=== PATIENT | male | born 1985 | race Caucasian/White ===

== ENCOUNTER 2016-12-23 22:53 | Emergency (ER) | payer MEDICAID ==
[2016-12-23] MEDS ORDERED: oxyCOD/ACETAMIN 5 MG/325 MG TABLET PO STA (23:08)
[2016-12-23] MEDS ORDERED: oxyCOD/ACETAMIN 5 MG/325 MG TABLET PO ONE (23:13)
== END 2016-12-24 00:33 | disposition home or self-care (01) ==
DX: R59.0 Localized enlarged lymph nodes (principal); F17.200 Nicotine dependence, unspecified, uncomplicated
CPT/HCPCS: 81003; 87491; 87591; 99283; A9270

== ENCOUNTER 2023-05-18 18:39 | Emergency (ER) | payer SELFPAY ==
[2023-05-18] MEDS ORDERED: SODIUM CHLORIDE 0.9% 1,000 ML IV STA (18:57)
[2023-05-18] MEDS ORDERED: HYDROmorphone 1 MG/ML CARPUJECT IVP STA (18:58)
[2023-05-18] MEDS ORDERED: ONDANSETRON 4 MG/2 ML VIAL IVP STA (18:58)
[2023-05-18 18:59] LABS: BILIRUBIN,URINE NEGATIVE (NEGATIVE); GLUCOSE, URINE (UA) NEGATIVE (NEGATIVE); KETONES,URINE (UA) NEGATIVE (NEGATIVE); LEUKOCYTE ESTERASE, URINE NEGATIVE (NEGATIVE); NITRITE,URINE NEGATIVE (NEGATIVE); OCCULT BLOOD,URINE NEGATIVE (NEGATIVE); PH,URINE 5.5 PH (5.0-7.5); PROTEIN,URINE NEGATIVE (NEGATIVE); UROBILINOGEN,URINE 0.2 (NORMAL) E.U./dL (NORMAL)
--- NOTE | 2023-05-18 19:02 | ED Physician Documentation ---
History of Present Illness - Stated complaint Stated Complaint: ABD PX - Chief complaint Chief Complaint: Abd Pain - Additonal information Additional information: 37-year-old male presents emergency department for evaluation of several weeks left-sided abdominal pain. Describes it as cramping and constant in nature nonradiating. Also feels that he may have a right inguinal hernia as he has a pressure and lump in the inguinal region. Denies any fevers. No melena hematochezia. No dysuria or urinary symptoms no pertinent past surgical history. Review of Systems Constitutional: reports: Reviewed and negative Ears: reports: Reviewed and negative Cardiac: reports: Reviewed and negative GI: reports: Abdominal Pain. denies: Nausea, Vomiting, Constipation : reports: Reviewed and negative Skin: reports: Reviewed and negative PD PAST MEDICAL HISTORY - Past Surgical History Past Surgical History: No - Present Medications Home Medications: Ambulatory Orders Medication Instructions Recorded Confirmed Lidocaine Patch 5% [Lidoderm Patch] 1 each TOP DAILY PRN #10 patch 08/19/16 predniSONE [Deltasone] 40 mg PO DAILY 5 Days tablet 08/19/16 - Allergies Allergies/Adverse Reactions: Allergies Allergy/AdvReac Type Severity Reaction Status Date / Time cefaclor [From Ceclor] Allergy Rash Verified 05/18/23 18:42 - Social History Does the pt smoke?: Yes Smoking Status: Current every day smoker Does the pt drink ETOH?: Yes Does the pt have substance abuse?: No - Immunizations Immunizations are current?: Yes - POLST Patient has POLST: No PD ED PE NORMAL - General General: Alert and oriented X 3, No acute distress, Well developed/nourished - Neck Neck: Supple, no meningeal sign, No adenopathy - Cardiac Cardiac: RRR, No murmur - Respiratory Respiratory: No respiratory distress, Clear bilaterally - Abdomen Abdomen: Normal bowel sounds, Soft. No: Non tender (Mild tenderness left flank. No CVA tenderness. No guarding or rebound.) - Male Male : Formula Weigher present (Unremarkable male exam with no inguinal hernia appreciated or induced.) - Back Back: No CVA TTP - Derm Derm: Warm and dry - Extremities Extremities: No deformity - Neuro Neuro: Alert and oriented X 3 Eye Opening: Spontaneous Motor: Obeys Commands Verbal: Oriented GCS Score: 15 Results - Vitals Vitals: Vital Signs - 24 hr 05/18/23 05/18/23 18:42 20:45 Temperature 36.5 C 37.3 C Heart Rate 80 67 Respiratory 16 16 Rate Blood Pressure 133/78 H 117/85 H O2 Saturation 98 97 Oxygen O2 Source Room air - Labs Labs: Laboratory Tests 05/18/23 05/18/23 05/18/23 18:51 19:15 19:15 WBC 14.4 H RBC 5.29 Hgb 17.1 Hct 50.8 MCV 96.0 H MCH 32.3 H MCHC 33.7 RDW 12.6 Plt Count 204 MPV 10.1 Neut # (Auto) 9.0 H Lymph # (Auto) 3.9 H [place] # (Auto) 1.2 H Eos # (Auto) 0.2 Baso # (Auto) 0.1 Absolute Nucleated RBC 0.00 Nucleated RBC % 0.0 Sodium 139 Potassium 3.8 Chloride 108 Carbon Dioxide 30 Anion Gap 1.0 L BUN 17 Creatinine 0.9 Estimated GFR (MDRD) 95 Glucose 90 Calcium 9.2 Total Bilirubin 0.3 AST 11 ALT 11 Alkaline Phosphatase 46 Total Protein 6.4 Albumin 4.0 Globulin 2.4 Albumin/Globulin Ratio 1.7 Lipase 31 Urine Color YELLOW Urine Clarity CLEAR Urine pH 5.5 Ur Specific Amity >=1.030 H Urine Protein NEGATIVE Urine Glucose (UA) NEGATIVE Urine Ketones NEGATIVE Urine Occult Blood NEGATIVE Urine Nitrite NEGATIVE Urine Bilirubin NEGATIVE Urine Urobilinogen 0.2 (NORMAL) Ur Leukocyte Esterase NEGATIVE Ur Microscopic Review NOT INDICATED Urine Culture Comments NOT INDICATED PD Medical Decision Making - ED course Complexity details: reviewed results, re-evaluated patient, d/w patient ED course: 37-year-old male presents emergency department for evaluation of several weeks left-sided flank pain. Described as cramping and sharp in nature. No fevers. No vomiting, melena or hematochezia. On presentation there was some mild to moderate tenderness elicited along the left flank. I had initially ordered some Dilaudid and Zofran in IV form but the patient declined that. Subsequently CBC, electrolytes and urinalysis was obtained. Per my interpretation mild leukocytosis with a white count of 14.4 thousand. Otherwise unremarkable CBC and electrolytes. Urinalysis shows no signs of infection. A CT was obtained for further evaluation of the abdominal pain and to rule out a surgical process such as an occult acute appendicitis, nephrolithiasis, ureterolithiasis bowel obstruction or diverticulitis. CT scan showed no acute duarte rgical findings though there was a note made of diverticulosis. At this time is not clear what the cause of the patient's abdominal pain is though he has remained well-appearing and hemodynamically stable. He declined pain medication today in the ER. He is discharged home with the advised to follow closely with his primary care provider. May benefit from referral for colonoscopy. The usual emergent return precautions for worsening symptoms was discussed. Departure - Departure Disposition: 01 Home, Self Care Clinical Impression: Left sided abdominal pain, Diverticulosis Condition: Stable Record reviewed to determine appropriate education?: Yes Instructions: ED Abdominal Pain Unkn Cause Male Comments: The labs today did not show any worrisome findings. The CT scan showed no findings to suggest gallbladder disease, appendicitis, bowel obstruction or kidney stones. There was no hernias seen. You do have diverticulosis. I do recommend he take Tylenol 500 mg with food 2-3 times a day or alternate with ibuprofen 600 mg also taken with food 2-3 times a day. Please reach out to her primary care doctor. Given that we do not have an obvious source for your left-sided abdominal pain it would be at this point be appropriate to consider getting his colonoscopy to make sure that there are no lesions or polyps within your colon that could be causing the symptoms. Return to the ER for worsening symptoms, fevers, uncontrolled vomiting, black or bloody stools. Forms: PCP List
[2023-05-18 19:16] LABS: CLARITY,URINE CLEAR (CLEAR)
[2023-05-18 19:27] LABS: BASOPHILS # (AUTO) 0.1 10^3/uL (0.0-0.1); BASOPHILS % (AUTO) 0.6 %; EOSINOPHILS # (AUTO) 0.2 10^3/uL (0.0-0.7); EOSINOPHILS % (AUTO) 1.6 %; HCT - HEMATOCRIT 50.8 % (42.0-52.0); HGB - HEMOGLOBIN 17.1 g/dL (14.0-18.0); LYMPHOCYTES # (AUTO) 3.9 10^3/uL (1.5-3.5); MEAN CORPUSCULAR HEMOGLOBIN 32.3 pg (27.0-31.0); MEAN CORPUSCULAR HGB CONC 33.7 g/dL (32.0-36.0); MEAN PLATELET VOLUME 10.1 fL (7.4-11.4); MONOCYTES # (AUTO) 1.2 10^3/uL (0.0-1.0); NEUTROPHILS % (AUTO) 62.4 %; PLT - PLATELET COUNT 204 10^3/uL (130-450); RED BLOOD COUNT 5.29 10^6/uL (4.70-6.10); RED CELL DISTRIBUTION WIDTH 12.6 % (12.0-15.0); WHITE BLOOD COUNT 14.4 x10^3/uL (4.8-10.8)
[2023-05-18 19:52] LABS: ALBUMIN/GLOBULIN RATIO 1.7 (1.0-2.2); BILIRUBIN,TOTAL 0.3 mg/dL (0.2-1.0); CALCIUM 9.2 mg/dL (8.5-10.3); CREATININE 0.9 mg/dL (0.6-1.3); POTASSIUM 3.8 mmol/L (3.5-4.5); TOTAL PROTEIN 6.4 g/dL (6.4-8.9)
--- NOTE | 2023-05-18 21:51 | CT Report ---
PROCEDURE: ABDOMEN/PELVIS W INDICATIONS: Left sided abd pain CONTRAST: 100mL Omni 300 TECHNIQUE: After the administration of intravenous contrast, 5 mm thick sections acquired from the diaphragms to the symphysis. 5 mm thick coronal and sagittal reformats were acquired. For radiation dose reducti on, the following was used: automated exposure control, adjustment of mA and/or kV according to diaz ent size. COMPARISON: CT abdomen pelvis 08/19/2016 FINDINGS: Image quality: Excellent. Lung bases: Unremarkable. Heart: Heart is normal in size. ABDOMEN: Liver: No mass lesion. Gallbladder: Within normal limits without calcified gallstones. Biliary ducts: No biliary ductal dilatation. Pancreas: Unremarkable. Spleen: Normal in size. Adrenal Glands: No adrenal nodules. Kidneys and Ureters: No hydronephrosis. Stomach and Bowel: Stomach, small bowel loops, and colon are normal in caliber and wall thickness. T he appendix is normal. There is colonic diverticulosis without acute diverticulitis. Peritoneum: No abnormal intraperitoneal fluid. No free air. Ventral Wall: No hernia. Abdominal Nodes: No retroperitoneal or mesenteric adenopathy by size criteria. Vessels: Aorta and inferior vena cava are normal in size. PELVIS: Pelvic Organs: Unremarkable. Bladder: Unremarkable. Pelvic Nodes: No enlarged lymph nodes. Miscellaneous: No inguinal hernias. Bones: Visualized osseous structures demonstrate no suspicious lesions. IMPRESSION: 1. No acute intra-abdominal abnormality. 2. Colonic diverticulosis without acute diverticulitis. Reviewed by: Edgar Porter MD on 05/18/2023 9:50 PM PDT Approved by: Edgar Porter MD on 05/18/2023 9:50 PM PDT Station ID: [id number]
[2023-05-18 22:19] VITALS: BP 137/68
[2023-05-19] MEDS ORDERED: iohexoL-300 100 ML VIAL IVP ONE (02:04)
== END 2023-05-18 22:14 | disposition home or self-care (01) ==
LOC: ED 18:39
DX: R10.9 Unspecified abdominal pain (principal); K57.30 Diverticulosis of large intestine without perforation or abscess without bleeding; F17.200 Nicotine dependence, unspecified, uncomplicated
CPT/HCPCS: 36415; 74177; 80053; 81003; 83690; 85025; 99283; 99284; Q9967; 81001; 87086

== ENCOUNTER 2024-03-08 20:33 | Emergency (ER) | payer BC ==
[2024-03-08 21:00] VITALS: BP 118/64; O2SAT 98
--- NOTE | 2024-03-08 21:21 | ED Physician Documentation ---
History of Present Illness - Stated complaint Stated Complaint: NAUSEA/OBREGON/DIZZY - Chief complaint Chief Complaint: General - History obtained from History obtained from: Patient - Additonal information Additional information: The patient comes to the emergency department with chief complaint of left-sided headache and nausea without vomiting over the last couple of days. He states that it was a bit worse today and so he decided to come in to get checked out. He is also noticed a rash on his left side and is concerned that he may be allergic to the [place] that he has been working with. The patient denies any fevers or chills. No upper respiratory symptoms. He has had some body aches. He denies any other complaints at this time. He states he is otherwise pretty healthy. He has a history of migraines and states this feels somewhat similar but not as intense. PD PAST MEDICAL HISTORY - Past Medical History Past Medical History: Yes Neuro: Migraines - Past Surgical History Past Surgical History: No HEENT: Myringotomy (tubes) - Present Medications Home Medications: Ambulatory Orders Medication Instructions Recorded Confirmed Ondansetron Odt [Zofran] 4 mg TL Q6H PRN #10 tablet 03/08/24 - Allergies Allergies/Adverse Reactions: Allergies Allergy/AdvReac Type Severity Reaction Status Date / Time cefaclor [From [facility]] Allergy Rash Verified 03/08/24 20:47 - Social History Does the pt smoke?: Yes Smoking Status: Current every day smoker Does the pt drink ETOH?: Yes Does the pt have substance abuse?: No - Immunizations Immunizations are current?: Yes - POLST Patient has POLST: No PD ED PE NORMAL - Vitals Vital signs reviewed: Yes - General General: Alert and oriented X 3, No acute distress, Well developed/nourished - HEENT HEENT: Atraumatic, EOMI, Moist mucous membranes, Other (Tenderness over left frontal area, bilateral supraorbital notches, and left worship. No posterior auricular lymphadenopathy. Tenderness at junction of L skull and neck.) - Neck Neck: Supple, no meningeal sign - Respiratory Respiratory: No respiratory distress - Abdomen Abdomen: Soft, Non distended - Derm Derm: Normal color, Warm and dry, Other (3 well-demarcated, lightly erythematous, Flat, circular lesions on left flank and abdominal wall. Some scaling centrally. No vesicles or pustules. No urticaria. No fluctuance. No induration. No central clearing or annular appearance.) - Extremities Extremities: No deformity - Neuro Neuro: Alert and oriented X 3 - Psych Psych: Normal mood, Normal affect Results - Vitals Vitals: Vital Signs - 24 hr 03/08/24 20:43 Temperature 37.3 C Heart Rate 87 Respiratory 15 Rate Blood Pressure 118/64 O2 Saturation 98 Oxygen O2 Source Room air PD Medical Decision Making - ED course Complexity details: considered differential, d/w patient, d/w family ED course: I discussed with the patient that as far as his concern over the rash, it does not appear distinctly allergic to me. It is most consistent with a early tinea outbreak. I have advised the patient to get some tolnaftate cream [id number] and apply this twice daily to the area. As far as his headache. He is afebrile, has had no trauma recently, and headache is more mild than his usual migraines. It is possible that he has picked up a viral illness and is on the early end of this, though there are no other symptoms to specifically indicate this. Patient also has some tenderness over his neck and shoulder musculature and this may also just be a tension headache. I have offered him IV fluids, as well as symptomatic treatment with medications parenterally in the emergency department, but the patient prefers to just have orals. He has explicitly stated he does not want narcotics. As such, I have ordered him doses of Ibuprofen, Decadron, and Zofran. I will give him a prescription for Zofran for home, too. We have discussed symptomatic management at home and the need for follow-up with primary care. Discussed the usual indications for return. Departure - Departure Clinical Impression: Tinea corporis Headache Qualifiers: Headache type: unspecified Headache chronicity pattern: acute headache Intractability: not intractable Qualified Code(s): R51.9 - Headache, unspecified Condition: Stable Instructions: ED Cephalgia Unspecified, ED Infec Skin Fungal Tinea Prescriptions: Ondansetron Odt [Zofran] 4 mg TL Q6H PRN #10 tablet PRN Reason: Nausea / Vomiting Comments: You have opted for oral medications tonight, and these have been administered. Your headache may be a milder form of migraine or it could be due to muscular tension throughout your neck and shoulder musculature. It is also possible that you have picked up a mild case of a viral illness and its early phase and is just causing you to feel somewhat unwell with headaches and nausea. What ever the case, there is no evidence of an emergent condition. Please be sure you are getting 8 to 10 cups of water per day to stay hydrated. You may take ibuprofen and/or Tylenol as needed for aches. You may take the Zofran has been prescribed as needed for nausea. The prescription has been electronically transmitted to the [facility] pharmacy in [place]. Forms: PCP List, Activity restrictions
[2024-03-08] MEDS: CHERRY SYRUP 10 ML UDC PO ONE (21:25)
[2024-03-08] MEDS: ONDANSETRON ODT 4 MG TABLET TL STA (21:25)
[2024-03-08] MEDS: IBUPROFEN 800 MG TABLET PO STA (21:25)
[2024-03-08] MEDS: DEXAMETHASONE 10 MG/ML VIAL PO STA (21:25)
== END 2024-03-08 21:33 | disposition home or self-care (01) ==
LOC: ED 20:33
DX: B35.4 Tinea corporis (principal); R51.9 Headache, unspecified; F17.200 Nicotine dependence, unspecified, uncomplicated
CPT/HCPCS: 99283; A9270; Q0162

== ENCOUNTER 2024-03-17 12:46 | Outpatient (CLI) | payer BC ==
--- NOTE | 2024-03-17 14:33 | XRAY Report ---
PROCEDURE: Chest 2V INDICATIONS: COUGH TECHNIQUE: 2 views of the chest were acquired. COMPARISON: Chest x-ray 04/03/2014 FINDINGS: Surgical changes and devices: None. Lungs and pleura: No pleural effusions or pneumothorax. Lungs are clear. Mediastinum: Mediastinal contours appear normal. Heart size is normal. Bones and chest wall: No suspicious bony lesions. Overlying soft tissues appear unremarkable. IMPRESSION: No acute cardiopulmonary process. Reviewed by: Kalpana Han MD on 03/17/2024 2:32 PM PDT Approved by: Kalpana Han MD on 03/17/2024 2:32 PM PDT Station ID: [id number]
== END 2024-03-17 12:47 | disposition home or self-care (01) ==
LOC: DI 12:46
PROVIDERS: ATTEND Student in an Organized Health Care Education/Training Program
DX: R05.9 Cough, unspecified (principal)

== ENCOUNTER 2024-05-23 09:11 | Emergency (ER) | payer OTHER, MEDICAID ==
[2024-05-23 09:25] VITALS: BP 135/87; O2SAT 99
--- NOTE | 2024-05-23 11:00 | ED Physician Documentation ---
PD HPI UPPER EXT INJURY - Stated complaint Stated Complaint: R ARM PX - Chief complaint Chief Complaint: Ext Problem - Additonal information Additional information: 38-year-old male with no significant past medical history presents emergency department for 2 months of right elbow pain and 2 to 3 weeks of left shoulder pain. Patient says that he does have a primary care provider but he does not remember the name of his primary care provider and has not followed up with his primary care provider about this pain or discomfort. 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 Since then he has been having significant pain with flexion extension there is no bruising there is no swelling. Unrelated to the right elbow he now is experiencing left shoulder pain that has been ongoing now for the last 2 to 3 weeks. Patient says that with any sort of abduction movement he feels pain to the posterior portion of the inside of his shoulder. He says that he has had a torn rotator cuff in the past of his right shoulder and this feels similar to that but he is not entirely sure he cannot think of any significant incident or injury or trauma that happened but just wanted to get imaging of both of these things to make sure that there was no any acute abnormalities or findings. PD PAST MEDICAL HISTORY - Past Medical History Neuro: Migraines - Past Surgical History Past Surgical History: Yes HEENT: Myringotomy (tubes) - Present Medications Home Medications: Ambulatory Orders Medication Instructions Recorded Confirmed Ondansetron Odt [Zofran] 4 mg TL Q6H PRN #10 tablet 03/08/24 - Allergies Allergies/Adverse Reactions: Allergies Allergy/AdvReac Type Severity Reaction Status Date / Time cefaclor [From Ceclor] Allergy Rash Verified 05/23/24 09:18 - Social History Does the pt smoke?: Yes Smoking Status: Current every day smoker Does the pt drink ETOH?: Yes Does the pt have substance abuse?: No - Immunizations Immunizations are current?: Yes - POLST Patient has POLST: No PD ED PE NORMAL - Vitals Vital signs reviewed: Yes - General General: Alert and oriented X 3, No acute distress, Well developed/nourished - Back Back: No CVA TTP, No spinal TTP - Derm Derm: Normal color, Warm and dry, No rash - Free text exam Free text exam: Right elbow: Tenderness to the lateral epicondylitis. No crepitus with flexion or extension no swelling no bruising no open wounds. Left shoulder: No crepitus with flexion or extension tenderness at the abduction no tenderness at the adduction no weakness no swelling no deformity Results - Vitals Vitals: Vital Signs - 24 hr 05/23/24 09:18 Temperature 36.7 C Heart Rate 84 Respiratory 16 Rate Blood Pressure 135/87 H O2 Saturation 99 Oxygen O2 Source Room air - Rads (name of study) Left shoulder Xray Relevant Findings:: Final report received, EMP independent interpretation of test, Other (No acute abnormal findings or abnormalities) Right elbow Xrays Relevant Findings:: Final report received, EMP independent interpretation of test, Other (No acute bony abnormalities or findings) PD Medical Decision Making - ED course ED course: 38-year-old male presents emergency department for right elbow pain and left shoulder pain. In regards to the right elbow pain has been happening now for about the last 2 or so months. There is no swelling no deformities No open wounds no ecchymosis.X-rays are complete for further evaluation and there is no acute bony abnormalities or findings. Patient has tenderness over the right lateral epicondylitis which is why I believe that he is experiencing tennis elbow also notes lateral epicondylitis. He is told to follow-up with Ortho outpatient for further evaluation given a Toradol shot here in the emergency department for buck n and discomfort. In regards to the left shoulder pain x-rays were also complete and there is no abnormal findings on x-ray for left shoulder as well. Patient is told to follow-up with primary care provider for physical therapy referral as well as follow-up with Ortho for further evaluation and possible outpatient more advanced imaging. Return precautions given all questions answered patient safe for discharge. Departure - Departure Disposition: 01 Home, Self Care Clinical Impression: Lateral epicondylitis of elbow, Left shoulder strain Instructions: Lateral Epicondylitis, Flexibility Shoulder Reach Up Follow-Up: Khoa Aquino MD [Provider Admit Priv/Credential] - Comments: Thank you for trusting us with your care. We completed x-rays of your right elbow and your left shoulder we are not seeing any acute abnormalities or findings at this point in time. I believe that you are experiencing tendinitis of your right elbow something also known as tennis elbow or lateral epicondylitis. I want you to follow-up with Ortho outpatient for further evaluation and see if possible more advanced imaging needs to be ordered as well as your primary care provider to see if he would benefit from physical therapy for your right elbow. In regards to your left shoulder again we are not seeing any abnormal findings on x-ray but I want you to follow-up with Ortho and your primary care provider for further workup of this. You can take 1000 mg of Tylenol every 8 hours and 600 mg of ibuprofen every 6 hours do not take ibuprofen for longer than 14 days at a time unless approved by your primary care provider. I would also consider adding in some diclofenac AKA Voltaren gel to your right elbow and your left shoulder. Forms: PCP List Discharge Date/Time: 05/23/24 13:18
--- NOTE | 2024-05-23 12:36 | XRAY Report ---
PROCEDURE: Shoulder 2+V LT INDICATIONS: pain to anterior shoulder with abduction TECHNIQUE: 3 views of the shoulder were acquired. COMPARISON: None. FINDINGS: Bones: No displaced fracture or dislocation. Soft tissues: No suspicious calcifications. IMPRESSION: No acute radiographic abnormality. If there is high concern for further derangement, consider MRI evaluation. Reviewed by: Jeremy Lewis MD on 05/23/2024 12:35 PM PDT Approved by: Jeremy Lewis MD on 05/23/2024 12:35 PM PDT Station ID: [id number]
--- NOTE | 2024-05-23 12:37 | XRAY Report ---
PROCEDURE: Elbow 3+V RT INDICATIONS: elbow pain after hitting it on metal bar TECHNIQUE: 3 views of the elbow were acquired. COMPARISON: None. FINDINGS: Bones: No acute displaced fracture. No dislocation. Soft tissues: No significant joint effusion. IMPRESSION: No acute radiographic abnormality. If there is high concern for occult injury, consider repeat radiog richie or cross-sectional imaging. Reviewed by: Jeremy Lewis MD on 05/23/2024 12:35 PM PDT Approved by: Jeremy Lewis MD on 05/23/2024 12:35 PM PDT Station ID: [id number]
[2024-05-23] MEDS: KETOROLAC 30 MG/ML VIAL IM STA (13:10)
== END 2024-05-23 13:18 | disposition home or self-care (01) ==
LOC: ED 09:11
DX: M77.11 Lateral epicondylitis, right elbow (principal); S43.402A Unspecified sprain of left shoulder joint, initial encounter; X58.XXXA Exposure to other specified factors, initial encounter
CPT/HCPCS: 96372; 99284

== ENCOUNTER 2024-05-24 08:51 | Outpatient (CLI) | payer MEDICAID, OTHER ==
--- NOTE | 2024-05-24 10:54 | CT Report ---
PROCEDURE: Head WO INDICATIONS: HEADACHE TECHNIQUE: Noncontrast 4.5 mm thick angled axial sections acquired from the foramen magnum to the vertex. For r adiation dose reduction, the following was used: automated exposure control, adjustment of mA and/or kV according to patient size. COMPARISON: None. FINDINGS: Image quality: Excellent. CSF spaces: Basal cisterns are patent. No extra-axial fluid collections. Ventricles are normal in size and shape. Brain: No midline shift. No intracranial masses or hemorrhage. Butt-white matter interface is norm al. Skull and face: Calvarium and visualized facial bones are intact, without suspicious lesions. Sinuses: Visualized sinuses and mastoids are clear. IMPRESSION: No acute intracranial pathology. No cause for patient's symptoms is identified. Reviewed by: Vinicius Magallon MD on 05/24/2024 10:53 AM PDT Approved by: Vinicius Magallon MD on 05/24/2024 10:53 AM PDT Station ID: [id number]
== END 2024-05-24 08:52 | disposition home or self-care (01) ==
LOC: DI 08:51
PROVIDERS: ATTEND Student in an Organized Health Care Education/Training Program
DX: R51.9 Headache, unspecified (principal)